=== PATIENT | male | born 1950 | race Caucasian/White ===

== ENCOUNTER 2018-05-03 09:38 | Inpatient (IN) | payer MEDICARE ==
[~2018-05-03] VITALS: Ht 172.7 cm; Wt 68.5 kg
[~2018-05-03 09:38] MED LIST: DILAUDID2 MG PO; GLUCOSAMINE &1 EACH PO; MAGNESIUM250 M1 PO; OMEGA 3 1,0001 EACH PO; RIBOFLAVIN400 MG PO; VITAMIN D32000 UNIT PO
--- NOTE | 2018-05-03 13:45 | NUR ---
67 year old MALE PATIENT ADMITTED TO CCU FROM ER VIA STRETCHER WITH DX OF AFIB. UPON ADMIT TO CCU PATIENT IS ALERT/ORIENTED/COOPERATIVE. DENIES DIZZINESS OR SHORTNESS OF BREATH. ADMISSION PROCESS STARTED.
--- NOTE | 2018-05-03 14:14 | EKG ---
[facility] [address] [facility] [place], [place] [address] Signed Atrial fibrillation with rapid ventricular response Abnormal ECG No previous ECGs available Confirmed by DAGOBERTO QUIÑONES MD ([id number]) on 05/03/2018 2:14:03 PM Electronically Signed By: DAGOBERTO QUIÑONES MD 05/03/18 1414 PATIENT NAME: CORRINE VANG Electrocardiogram DATE OF : 52 PHYSICIAN: DAGOBERTO QUIÑONES MD REPORT #: [id number] REPORT IS CONFIDENTIAL AND NOT TO BE RELEASED WITHOUT AUTHORIZATION
--- NOTE | 2018-05-03 14:50 | NUR ---
VERAPMIL 40 MG PO GIVEN. CARDIZEM GTT TO OFF. BP-99/56.
--- NOTE | 2018-05-03 15:00 | NUR ---
UP TO BR TO VOID 150 ML OF CLEAR YELLOW URINE. HR REMAINS IN 70-80 WHEN UP. IS ON CARDIZEM GTT AT 5 MG/HR.
--- NOTE | 2018-05-03 16:00 | NUR ---
RESTFUL, DENEIS PROBLEMS. REMAINS IN AFIB. HR 66.
[2018-05-03] MEDS ORDERED: DAILY MULTIPLE1 EACH PO (17:55)
[2018-05-03] MEDS ORDERED: FISH OIL 1,0001 EAC2 PO (17:56)
[2018-05-03] MEDS ORDERED: PROBIOTIC1 EAC1 PO (17:56)
[2018-05-03] MEDS ORDERED: EMERGEN-C 500500 MG PO (17:57)
--- NOTE | 2018-05-03 17:58 | NUR ---
MED REC COMPLETE
--- NOTE | 2018-05-03 18:27 | NUR ---
DR. GILBERT UPDATED ON PATIENT BP AND HR. NO FUTHER ORDERS. PATIENT DENIES PAIN.
--- NOTE | 2018-05-03 18:29 | NUR ---
FAMILY MEMBERS ARE IN ROOM. TOOK DINNER WELL.
--- NOTE | 2018-05-03 19:00 | NUR ---
REPORT TO NEXT SHIFT. DENIES PROBLEMS. HAS HAD GOOD APPETITE SINCE ADMISSION. NO FUTHER CHANGES.
--- NOTE | 2018-05-04 08:31 | NUR ---
PATIENT UP IN BED, WATCHING TV, FAMILY NOW GONE. VITALS AND TEMP CHARTED. NO OHTER NEEDS
[2018-05-04] MEDS ORDERED: VERAPAMIL ER120 M1 PO (09:17)
--- NOTE | 2018-05-04 09:20 | NUR ---
pt up ambulating in the cordon way at this time. heart rate increased to the 110's to 100's, then patient up in the bathroom to clean up at this time.
--- NOTE | 2018-05-04 09:47 | NUR ---
PATIENT UP IN BED, DISCHARGE VITALS CHARTED. IV D/Cd. PHARMACY IN ROOM. NO OTHER NEEDS
--- NOTE | 2018-05-04 10:19 | NUR ---
PT AMBULATED TO THE FRONT OF THE HOSPITAL WITH NURSING STAFF. PT DENIES LIGHTHEADNESS, DIZZNESS AND TOLERATES GETTING DRESSED AND AMBULATION.
== END 2018-05-04 10:06 | disposition home or self-care (01) | DRG 310 ==
LOC: ED 09:38 → CCU 13:30
PROVIDERS: ADMIT Internal Medicine
DX: I48.0 Paroxysmal atrial fibrillation (principal); E86.0 Dehydration; G43.909 Migraine, unspecified, not intractable, without status migrainosus; F17.220 Nicotine dependence, chewing tobacco, uncomplicated; Z88.5 Allergy status to narcotic agent
CPT/HCPCS: 71045; 80048; 80053; 83735; 83880; 84439; 84443; 84484; 85025; 85610; 93005; 93010; 93306; J1650; J3475; J7030; J7120

== ENCOUNTER 2024-07-16 09:36 | Emergency (ER) | payer MEDICARE, OTHER ==
[~2024-07-16] VITALS: Ht 172.7 cm; Wt 68.8 kg
[~2024-07-16 09:36] MED LIST changes: +DAILY MULTIPLE1 EACH PO; +EMERGEN-C 500500 MG PO; +FISH OIL 1,0001 EAC2 PO; +PROBIOTIC1 EAC1 PO; +VERAPAMIL ER120 M1 PO
[2024-07-16] MEDS ORDERED: CITALOPRAM HBR20 MG PO (09:52)
[2024-07-16] MEDS ORDERED: SODIUM CHLORIDE 0.9% 1,000 ML IV PRN (10:00)
[2024-07-16 10:27] LABS: BASOPHILS 0.7 % (0-2); HEMATOCRIT 44.8 % (35.0-50.0); HEMOGLOBIN 15.1 g/dL (12.0-18.0); LYMPHOCYTES 11.6 % (24-44); MCH 30.6 (27-36); MCHC 33.7 g/dl (30-36); MCV 90.7 fl (81-99); MONOCYTES 6.6 % (0-12); NEUTROPHILS 79.1 % (39-80); PLATELET COUNT 207 K/uL (140-440); RBC 4.94 M/ul (4.3-5.7); RDW 13.4 (10.5-15.0)
[2024-07-16 10:51] LABS: INR 1.15 (0.80-1.30); PARTIAL THROMBOPLASTIN TIME 24.3 Sec (22.9-41.3)
[2024-07-16 11:10] LABS: ALBUMIN 3.3 g/dL (3.4-5.0); ALBUMIN/GLOBULIN RATIO 1.22 (1.1-2.4); ANION GAP 12.2 (7-21); BILIRUBIN, TOTAL 0.6 ng/dL (0.2-1.0); BUN/CREATININE RATIO 27.67 (6.0-28.6); CALCIUM 8.9 mg/dL (8.5-10.1); CREATININE, SERUM 1.12 mg/dL (0.70-1.30); MAGNESIUM 1.5 mg/dL (1.8-2.4); POTASSIUM 4.2 mmol/L (3.5-5.1)
[2024-07-16] MEDS ORDERED: MAGNESIUM SULFATE 2 GM/50 ML BAG IV ONE (11:30)
[2024-07-16 13:47] VITALS: BP 114/67
--- NOTE | 2024-07-17 13:15 | EKG ---
[facility] [address] [facility] [place] [address] Signed Sinus bradycardia Otherwise normal ECG When compared with ECG of 03-MAY-2018 09:43, Sinus rhythm has replaced Atrial fibrillation Vent. rate has decreased BY 86 BPM Confirmed by Chela Roe MD ([id number]) on 07/17/2024 1:15:32 PM Electronically Signed By: CHELA ROE 07/17/24 1315 PATIENT NAME: TAJCORRINEJermaine CLIFFORD Electrocardiogram DATE OF : 52 PHYSICIAN: CHELA ROE REPORT #: [id number] REPORT IS CONFIDENTIAL AND NOT TO BE RELEASED WITHOUT AUTHORIZATION
== END 2024-07-16 13:47 | disposition home or self-care (01) ==
LOC: ED 09:36
PROVIDERS: Emergency Medicine
DX: R55 Syncope and collapse (principal); E86.0 Dehydration; E83.42 Hypomagnesemia; R00.1 Bradycardia, unspecified; Z88.5 Allergy status to narcotic agent; Z79.899 Other long term (current) drug therapy
CPT/HCPCS: 36415; 70450; 71045; 80053; 83735; 83880; 84484; 85025; 85379; 85610; 85730; 93005; 93010; 96361; 96365; 99284-25; J3475; J7030

== ENCOUNTER 2025-10-18 07:36 | Day surgery (SDC) | payer BC, MEDICARE ==
[~2025-10-18] VITALS: Ht 172.7 cm; Wt 66.0 kg
[~2025-10-18 07:36] MED LIST changes: +ACIDOPHILUS PR1 EAC1 PO; +CEFAZOLIN SODIUM 2 GM in SODIUM CHLORIDE 0.9% 100 ML IV SCH; +CITALOPRAM HBR20 MG PO; +DESVENLAFAXINE50 MG PO; +ELIQUIS5 MG PO; +FISH OIL 1,0001 EAC6 PO; +GLUCOSAMINE1000 MG PO; +HYDROXYZINE HCL25 MG PO; +IBLOOD GLUCOSE TEST STRIP 1 EA TEST VI PRN; +LACTATED RINGER'S 1,000 ML IV SCH; +LIDOCAINE HCL 1% 5 ML SDV INJ ONE; +LIDOCAINE HCL 4% 5 ML AMP ONE; +MAGNESIUM400 MG PO; +TRIAMCINOLONE A15 G1 TOP
[2025-10-18] MEDS ORDERED: HEParin SOD (PORCINE) 5,000 UNIT/ML SDV SUB-Q ONE (07:45)
[2025-10-18 07:52] VITALS: BP 111/72
[2025-10-18] MEDS ORDERED: ROCURONIUM BROMIDE 50 MG/5 ML SYR ONE (08:12)
[2025-10-18] MEDS ORDERED: fentaNYL citrate 100 MCG/2 ML VIAL ONE (08:12)
[2025-10-18] MEDS ORDERED: SUGAMMADEX SODIUM 200 MG/2 ML ML ONE (08:12)
[2025-10-18] MEDS ORDERED: LIDOCAINE HCL 2% 5 ML SDV ONE (08:12)
[2025-10-18] MEDS ORDERED: SODIUM CHLORIDE 0.9% 20 ML IV ONE (09:04)
[2025-10-18] MEDS ORDERED: Ropivacaine HCl 0.5% 30 ML VIAL ONE (09:04)
[2025-10-18] MEDS ORDERED: DEXAMETHASONE SOD PHOS 4 MG/ML VIAL ONE ×2 (09:04→09:47)
[2025-10-18] MEDS ORDERED: PHENYLEPHRINE HCL IN 0.9% NACL 1 MG/10 ML SYR ONE (09:22)
[2025-10-18] MEDS ORDERED: fentaNYL citrate 50 MCG/ML SDV ONE (10:20)
--- NOTE | 2025-10-18 10:20 | NUR ---
10/18/25 1020 Wilda Johnson 1004-PT ARRIVES TO PACU ON 6L VIA MASK. PT IS NONAROUSABLE WITH OPA IN PLACE. RESP EVEN AND UNLABORED.
[2025-10-18] MEDS ORDERED: KETOROLAC TROMETHAMINE 30 MG/ML VIAL ONE (10:22)
[2025-10-18] MEDS ORDERED: OXYCODONE/APAP 5/325 TAB PO PRN (10:30)
[2025-10-18 10:38] VITALS: BP 126/85
--- NOTE | 2025-10-18 10:54 | NUR ---
1030 PT ARRIVED TO DAY SURGERY FROM PACU VIA STREACHER. PT REPORTING PAIN THAT IS 6/10 THAT IS NOT TOLERABLE. PT STATES HE FEELS LIKE 'A HORSE KICKED ME IN THE STOMACH'. REPORT TAKEN FROM DESTINEE Reilly RN. 1040 JEAN MARIE VANG IN ROOM GIVING IV DILAUTED. PT STATES THAT HIS PAIN IS GETTING BETTER NOW. PT HAS PLUSE OX ON FINGER, OXGYEN STAYING ABOVE 96% ON RA. PAIN MEDICATION GIVEN PER EMAR. PT BED IS LOW AND LOCKED, CALL LIGHT WITHIN REACH. PT HAS BEEN ABLE TO TOLERATE PO JELLO AND WATER WITHOUT NAUSEA. VITALS TAKEN. IV ASSESSED. 1050 CALLED PT TO LET HER KNOW PT IS BACK IN ROOM. PT STATES SHE WILL BE HERE IN 10 MINUTES TO BE WITH PT.
[2025-10-18 11:28] VITALS: BP 118/69
--- NOTE | 2025-10-18 11:53 | NUR ---
1129 HOURLY ROUNDING DONE WITH PT. VITALS TAKEN. IV ASSESSED. PT REPORTS NO PAIN OR NAUSEA AT THIS TIME. PT HAS TOLERATED PO FLUIDS AND JELLO. PT'S IS AT BEDSIDE. PT BED RAILS UP AND BED IS LOW AND LOCKED. PT IS TAKING PRESCRIPTION TO PHARMACY TO BE FILLED. PT HAS CALL LIGHT WITHIN REACH.
--- NOTE | 2025-10-18 11:54 | OR ---
[facility] [address] [place], [place] [address] Signed DATE OF OPERATION: 10/18/2025 SURGEON: Hamilton Lin DO PREOPERATIVE DIAGNOSIS: Direct right inguinal hernia. POSTOPERATIVE DIAGNOSIS: Direct right inguinal hernia. PROCEDURE PERFORMED: Repair of direct right inguinal hernia with onlay mesh. ANESTHESIA: General. ESTIMATED BLOOD LOSS: Minimal. DRAINS: None. COMPLICATIONS: None. DESCRIPTION OF PROCEDURE: The patient was brought to the operating room, placed in supine position. After induction of general endotracheal anesthesia the abdomen was then sterilely shaved, prepped and draped in usual fashion. A time-out was performed, all were in agreement. The right inguinal region was then identified and a skin incision was made over the right inguinal canal with a 15 blade scalpel. Bleeding points controlled with electrocautery. External oblique aponeurosis was then identified and external ring was identified, opened distal extent revealing the cord and cord structures. Cord and cord structures were dissected off the floor of the inguinal canal on the lateral of the ilioinguinal ligament and encircled with a [place] drain kept out of harm's way. The direct inguinal hernia was then identified, some adhesions were mobilized and decision to proceed and primary closure was made. The inguinal canal was then reconstructed with interrupted 0 Ethibond from the apex of the inguinal canal and the pubic tubercle up to the internal ring. This was completed and satisfactory closure was noted. Small relaxing incision was made in the medial muscles. A pre-fashion precut onlay mesh was Electronically Signed By: HAMITLON LIN DO 10/18/25 1154 PATIENT NAME: CORRINE VANG OPERATIVE REPORT DATE OF : 52 REPORT #: [id number] PHYSICIAN: HAMILTON LIN DO PCP: NATALIYA ORONA REPORT IS CONFIDENTIAL AND NOT TO BE RELEASED WITHOUT AUTHORIZATION [facility] [address] [place], [place] [address] Signed then placed in the inguinal canal, secured to the pubic tubercle along the ilioinguinal ligament and medially as well and not to entrap the cord and cord structures. Cord and cord structures placed back in the anatomic position. The entire region was copiously irrigated and dried. No other bleeding sites were apparent. The external oblique aponeurosis was then reconstructed. External ring was reconstructed with interrupted 2-0 Vicryl. The subcutaneous tissue was closed with interrupted 3-0 Vicryl and the skin was closed with 4-0 Monocryl in subcuticular fashion. Dermabond dressing was applied. The patient tolerated the procedure well and was taken to recovery room in satisfactory condition. Hamilton Lin DO RS/MODL /[id number] Copies: ~ Electronically Signed By: HAMILTON LIN DO 10/18/25 1154 PATIENT NAME: CORRINE VANG OPERATIVE REPORT DATE OF : 52 REPORT #: [id number] PHYSICIAN: HAMILTON LIN DO PCP: NATALIYA ORONA REPORT IS CONFIDENTIAL AND NOT TO BE RELEASED WITHOUT AUTHORIZATION
[2025-10-18 12:37] VITALS: BP 107/71
--- NOTE | 2025-10-18 12:47 | NUR ---
1230 HOURLY ROUNDING DONE WITH PT, PT REPORTS NO PAIN AND NAUSEA AT THIS TIME. PT AT BEDSIDE. PT STATES HE DOES NOT FEEL NEED TO URINATE AT THIS TIME. PT HAS WATER AND CRACKERS AT BEDSIDE. VITALS TAKEN. IV ASSESSED. NO QUESTIONS AT THIS TIME.
--- NOTE | 2025-10-18 13:04 | NUR ---
PATIENT ASSISTED OOB AND TO BATHROOM. VOID PER URINAL. ASSISTED BACK TO ROOM. PATIENT WILL WORK ON GETTING DRESSED WITH HELP FROM .
--- NOTE | 2025-10-18 13:34 | NUR ---
1320-WENT OVER DISCHARGE INSTRUCTIONS WITH PT AND HIS . ALL QUESTIONS ANSWERED. 1325-PT AMBULATES TO WHEELCHAIR AND RIDE PROVIDED TO FRONT OF HOSPITAL WHERE WAS WAITING WITH THE CAR. 1335-PHONE CALL TO WITH INSTRUCTIONS TO RESTART [facility] IN 2 DAYS.
[2025-10-18] MEDS ORDERED: SEVOFLURANE 250 ML BTL INH ONE (14:11)
== END 2025-10-18 13:25 | disposition home or self-care (01) ==
LOC: DS 07:36 → OPS 07:36 → DS 08:30 → OPS 09:00 → DS 09:00 → OPS 13:25 → DS 11-13 08:00
PROVIDERS: ATTEND Surgery
PROC: 3E0T3BZ Introduction of Anesthetic Agent into Peripheral Nerves and Plexi, Percutaneous Approach (ICD-10-PCS; 2025-10-18)
PROC: 0YU50JZ Supplement Right Inguinal Region with Synthetic Substitute, Open Approach (ICD-10-PCS; principal; 2025-10-18 09:00)
DX: K40.90 Unilateral inguinal hernia, without obstruction or gangrene, not specified as recurrent (principal); I48.91 Unspecified atrial fibrillation; F17.220 Nicotine dependence, chewing tobacco, uncomplicated; Z79.01 Long term (current) use of anticoagulants; Z79.899 Other long term (current) drug therapy; Z88.5 Allergy status to narcotic agent
CPT/HCPCS: 00830; 64486; J0165; J0688; J1100; J1171; J1644; J2003; J2405; J2704; J2795; J3010; J3490; J7121